=== PATIENT | female | born 1960 | race Caucasian/White ===

== ENCOUNTER 2021-03-14 16:02 | Emergency (ER) | payer SELFPAY ==
[2021-03-14] VITALS (11 sets, daily range): BP systolic 135–180; BP diastolic 77–92; PULSE 59–98; RESP 12–28; TEMP 36.9; O2SAT 93–97; BMI 17.2
--- NOTE | 2021-03-14 16:01 | ECG_ITS ---
APPROVED REPORT Exam: Resting ECG HR:88 bpm ECG Measurements Heart Rate 88 AXES OK 140 P 71 QRSd 82 QRS 61 QT 372 T 60 QTc 450 Conclusion Normal sinus rhythm Normal ECG Electronically signed by : Sunil Leblanc, 03/14/2021 17:49:17
--- NOTE | 2021-03-14 16:05 | HMH.EDGENADL ---
ED Disposition Clinical Impression: Epigastric pain, Coronary artery calcification, Bochdalek hernia UTI (urinary tract infection) Qualifiers: Urinary tract infection type: site unspecified Hematuria presence: without hematuria Qualified Code(s): N39.0 - Urinary tract infection, site not specified Disposition: Home, Self-Care Condition on Discharge: Good Instructions: Diaphragmatic Hernia, DI for Urinary Tract Infection (UTI), DI for Abdominal Pain-Adult, DI for Atypical Chest Pain Additional Instructions: Additional instructions for URINARY TRACT INFECTION: Take antibiotic as prescribed. See your physician in 2-3 days for follow up and culture results. Return immediately if you have an uncontrollable fever greater than 102 degrees, severe back or abdominal pain, inability to urinate, or repetitive vomiting. Additional instructions for ABDOMINAL PAIN: See your physician as soon as possible for further evaluation. Return immediately if worsening abdominal pain, vomiting, shortness of breath, fever, vomiting of blood or abdominal distention. You are being provided with a list of physicians available for follow-up of your condition. Please call a physician on this list to arrange a follow-up appointment as soon as possible. On your CAT scan of your abdomen you had calcifications of your coronary arteries, you need further evaluation for this, you are being referred to cardiology. Call to make an appointment. Follow-up with a surgeon regarding your diaphragmatic hernia. Prescriptions: Ciprofloxacin HCl [Cipro 500mg Tab] 500 mg PO BID #14 tab Transmission Status: Received by [id number] Referrals: Provider,MD Ashley [Primary Care Provider] - Emery Muller MD [Staff Physician] - (cardiology) Fam Jon MD [Staff Physician] - (surgery) - Critical Care Critical Care Time: No Attestation: On , the high probability of a clinically significant, sudden or life threatening deterioration of the following system(s) required my full and direct attention, intervention and personal management. The time I documented below is in addition to time spent performing reported procedures but includes the following listed in this critical care notation. Medical Decision Making - Morris Inquiry Pt receiving controlled substance: No Vital Signs: 03/14/21 16:02 03/14/21 16:57 03/14/21 17:01 Temperature 98.5 F Temperature Source Oral Pulse Rate 71 73 Pulse Rate [Right] 98 H Respiratory Rate 16 12 17 Blood Pressure 154/92 H 152/90 H Blood Pressure [Right Arm] 180/91 H Blood Pressure Mean 114 113 Blood Pressure Mean [Right Arm] 120 Blood Pressure Source [Right Arm] Automatic Cuff Blood Pressure Position [Right Arm] Sitting 02 Sat by Pulse Oximetry 95 95 95 Oxygen Delivery Method Room Air 03/14/21 17:15 03/14/21 17:30 03/14/21 17:31 Temperature Temperature Source Pulse Rate 76 69 70 Pulse Rate [Right] Respiratory Rate 24 26 H 22 Blood Pressure 136/77 Blood Pressure [Right Arm] Blood Pressure Mean 114 Blood Pressure Mean [Right Arm] Blood Pressure Source [Right Arm] Blood Pressure Position [Right Arm] 02 Sat by Pulse Oximetry 93 L 94 L 95 Oxygen Delivery Method 03/14/21 18:11 03/14/21 18:51 03/14/21 19:00 Temperature Temperature Source Pulse Rate 67 59 L 64 Pulse Rate [Right] Respiratory Rate 19 22 22 Blood Pressure 135/88 145/87 H Blood Pressure [Right Arm] Blood Pressure Mean 103 Blood Pressure Mean [Right Arm] Blood Pressure Source [Right Arm] Blood Pressure Position [Right Arm] 02 Sat by Pulse Oximetry 96 97 96 Oxygen Delivery Method 03/14/21 19:50 Temperature Temperature Source Pulse Rate 67 Pulse Rate [Right] Respiratory Rate 17 Blood Pressure 145/92 H Blood Pressure [Right Arm] Blood Pressure Mean Blood Pressure Mean [Right Arm] Blood Pressure Source [Right Arm] Blood Pres
--- NOTE | 2021-03-14 16:24 | CT_ITS ---
PROCEDURE INFORMATION: Exam: CT Abdomen And Pelvis With Contrast Exam date and time: 03/14/2021 4:24 PM Age: 60 years old Clinical indication: Abdominal pain; Epigastric TECHNIQUE: Imaging protocol: Computed tomography of the abdomen and pelvis with contrast. Total images: 278 Radiation optimization: All CT scans at this facility use at least one of these dose optimization techniques: automated exposure control; mA and/or kV adjustment per patient size (includes targeted exams where dose is matched to clinical indication); or iterative reconstruction. Contrast material: ISOVUE; Contrast volume: 75 ml; Contrast route: IV; COMPARISON: ABDPELW/O CT ABD PELVIS W/O CONTRAST 04/30/2014 6:54 PM FINDINGS: Lungs: Granulomatous calcification in the left lower lobe. Pleural spaces: Trace basilar pleural effusions, left greater than right, with mild adjacent compressive atelectasis. Heart: Heart size normal. Moderate coronary artery calcification in the LAD distribution. Moderate coronary artery calcification in the RCA distribution. Mediastinal space: The visualized distal esophagus is normal. Liver: There is a small fatty Bochdalek's hernia in the posteromedial right base which is slightly increased in size since 2014, currently 4 x 2 x 4 cm. No signs of strangulation. No herniated bowel or solid organ content. Normal contour. There are 2 circumscribed low-density under enhancing hepatic lesions in the central liver dome and right lobe posterior segment demonstrating features most consistent with simple hepatic cysts. These do not require further evaluation. No intrahepatic biliary ductal dilatation. Gallbladder and bile ducts: The gallbladder is contracted but otherwise unremarkable. The common bile duct measures 7 mm maximum diameter, which is mildly increased in caliber from 2014 and slightly dilated for age. Clinical/laboratory correlation recommended to exclude evidence of biliary obstruction. Consider sonographic assessment as clinically indicated. Pancreas: Normal. No inflammatory changes or ductal dilation. Spleen: Granulomatous calcifications in the spleen without acute splenic abnormality. Adrenal glands: Normal. No adrenal mass. Kidneys and ureters: No acute abnormalities. No hydronephrosis or hydroureter. No urinary tract stones are identified. There are bilateral renal cortical lesions demonstrating low density values and circumscribed margins favoring simple renal cysts. No further imaging evaluation is required. There is a 10 mm complicated cyst at the upper pole of the left kidney measuring 40 Hounsfield units which is unchanged from 2014 and does not require further evaluation. Stomach and bowel: The stomach is unremarkable. Short segment small bowel intussusception in the left upper quadrant on series 3, image 56 measuring 3 cm in length with no evidence of associated bowel obstruction, lead point mass, or other bowel abnormality. This can be a transient finding of no clinical significance. Correlate clinically for obstructive symptoms. There is colonic wall thickening suspicious for mild colitis involving the ascending colon and hepatic flexure. The distal colon is largely contracted with moderate rectal gas.Mild diverticulosis involving the distal colon without evidence of acute diverticulitis. No evidence of perforation or abscess. Appendix: The appendix is not identified. No secondary signs of appendicitis. Intraperitoneal space: No free fluid or air. Vasculature: Moderate atherosclerotic aortoiliac calcification without aneurysm. Lymph nodes: No adenopathy. Urinary bladder: The urinary bladder is largely contracted without gross
[2021-03-14 16:35] LABS: Chloride 107 mmol/L (98-107)
[2021-03-14 16:36] LABS: Potassium 3.8 mmoL/L (3.5-5.1); Sodium 142 mmol/L (136-145)
[2021-03-14 16:38] LABS: Alanine Aminotransferase 14 U/L (12-78); Alkaline Phosphatase 150 U/L (38-126); Anion Gap 14.8 mEq/L (5-15); Aspartate Amino Transferase 24 U/L (14-36); Bilirubin,Total 0.8 mg/dl (0.2-1.3); Blood Urea Nitrogen 24 mg/dl (7-17); Carbon Dioxide 24 mmol/L (22.0-30.0); Creatinine Clearance Estimated 44 mL/min (50-200); Estimated Glomerular Filt Rate 50 ml/min (>60); GFR (African American) 61 ML/MIN (>60); Lipase 86 U/L (23-300)
[2021-03-14 16:39] LABS: Albumin Level 4.2 g/dl (3.5-5.0); Albumin/Globulin Ratio 1.4 (1.1-1.8); Calcium 9.5 mg/dl (8.4-10.2); Globulin 3.1 g/dL (1.3-3.2); Glucose 104 mg/dl (74-100); Total Protein,Serum 7.3 g/dl (6.3-8.2)
[2021-03-14 16:51] LABS: Microscopic, Urine URINE MICROSCOPIC (MICROSCOPIC)
[2021-03-14 17:32] LABS: Troponin I < 0.01 ng/ml (0.00-0.034)
[2021-03-14 17:48] LABS: Basophils % 0.3 % (0.1-2.0); Eosinophils # 0.1 K/mm3 (0.0-0.4); Eosinophils % 1.2 % (0.1-12.0); Hematocrit 40.5 % (37.0-47.0); Hemoglobin 14.4 g/dL (12.2-16.2); Lymphocytes % 9.6 % (10-50); Mean Corpuscular HGB Conc 35.5 g/dL (31.8-35.4); Mean Corpuscular Hemoglobin 31.7 pg (27.0-31.2); Mean Corpuscular Volume 89.2 fl (81-99); Mean Platelet Volume 8.5 fl (7.4-10.4); Monocytes # 0.4 K/mm3 (0.1-1.0); Monocytes % 3.3 % (1.7-9.3); Neutrophils % 85.5 % (37.0-80.0); Platelet Count 231 K/mm3 (142-424); Red Blood Count 4.54 M/mm3 (4.20-5.40); Red Cell Distribution Width 12.3 % (11.5-17.5); White Blood Count 10.6 K/mm3 (4.8-10.8)
--- NOTE | 2021-03-14 17:50 | PC.NURSE ---
PATIENT TO CT
[2021-03-14 18:00] LABS: MANUAL DIFFERENTIAL MANUAL DIFFERENTIAL (MANUAL DIFF)
[2021-03-14 18:43] LABS: Appearance,Urine CLEAR (Clear); Blood, Urine 2+ (Negative); Color,Urine YELLOW (Yellow); Glucose,Urine (UA) Negative (Negative); Ketones,Urine 1+ (Negative); Leukocyte Esterase,Urine 2+ (Negative); Nitrate,Urine POSITIVE (Negative); Protein,Urine 2+ (Negative); Specific Gravity, Urine >= 1.030 (1.005-1.030); Urobilinogen,Urine 0.2 EU/dl (0.2)
[2021-03-14 18:45] LABS: Bilirubin,Urine Negative (Negative)
--- NOTE | 2021-03-14 18:46 | PC.NURSE ---
Called lab and asked about delay of urine results.
[2021-03-14 20:01] LABS: Troponin I < 0.01 ng/ml (0.00-0.034)
[2021-03-14 20:10] LABS: WBC,Urine 20-50 #/hpf (0-3)
[2021-03-14 20:11] LABS: Bacteria,Urine 2+ /lpf; Mucus,Urine 1+ /lpf
[2021-03-14 21:03] LABS: Eosinophils % 3 % (0-3); Lymphocytes % 14 % (10-50); Monocytes % 2 % (2-9); Neutrophils % 81 % (42-76); Platelet Estimate Normal; Total Cells Counted 100
== END 2021-03-14 20:18 | disposition home or self-care (01) ==
PROVIDERS: Emergency Provider Emergency Medicine
DX: R10.13 Epigastric pain (principal); N30.00 Acute cystitis without hematuria; I25.10 Atherosclerotic heart disease of native coronary artery without angina pectoris; Q79.0 Congenital diaphragmatic hernia; F17.210 Nicotine dependence, cigarettes, uncomplicated
CPT/HCPCS: 74177; 80053; 81001; 83690; 84484; 85007; 85025; 87086; 87088; 87186; 93005; 96365; 96375; 99283; J2405; Q9967

== ENCOUNTER 2021-11-27 11:53 | Emergency (ER) | payer SELFPAY ==
[2021-11-27 11:54] VITALS: BP 197/112; PULSE 86; RESP 20; O2SAT 94; BMI 19.3
--- NOTE | 2021-11-27 12:04 | XR_ITS ---
FINAL REPORT CLINICAL HISTORY: fall FINDINGS: LEFT HIP Three views demonstrate no acute fracture or dislocation. There are mild degenerative changes of both hips. The visualized bony structures are well aligned. No soft tissue abnormality is seen. IMPRESSION: No acute process. Reviewed, Interpreted and Dictated by Nilton Melton III, MD Transcribed by Melinda Delacruz Authenticated by Nilton Melton III, MD on 11/27/2021 01:42:53 PM [facility]
--- NOTE | 2021-11-27 12:04 | CT_ITS ---
FINAL REPORT CLINICAL HISTORY: fall, NECK AND HEAD PAIN FINDINGS: Axial CT images of the cervical spine were obtained without contrast. Sagittal and coronal reformatted images were also obtained. This study was performed with techniques to keep radiation doses as low as reasonably achievable (ALARA). Individualized dose reduction techniques using automated exposure control or adjustment of mA and/or kV according to the patient's size were employed. There is no evidence of fracture or dislocation. There are moderate degenerative changes, greatest at C4-5, C5-C6, and C6-7. There is mild kyphosis on C5. Multilevel neural foraminal narrowing is identified. Two right carotid stents are present. IMPRESSION: Moderate degenerative changes without acute bony abnormality. Reviewed, Interpreted and Dictated by Nilton Melton III, MD Transcribed by Melinda Delacruz Authenticated by Nilton Melton III, MD on 11/27/2021 01:42:59 PM [facility]
--- NOTE | 2021-11-27 12:04 | CT_ITS ---
FINAL REPORT CLINICAL HISTORY: fall, HEAD AND NECK PAIN COMPARISON: 05/10/2018 FINDINGS: Axial images of the head were obtained without contrast. Coronal reformatted images were also obtained. This study was performed with techniques to keep radiation doses as low as reasonably achievable (ALARA). Individualized dose reduction techniques using automated exposure control or adjustment of mA and/or kV according to the patient's size were employed. There is generalized age appropriate atrophy. There is no evidence of intracranial hemorrhage or mass. There is right frontal encephalomalacia, stable. There is mild left frontal encephalomalacia, stable. The ventricular size is within normal limits. There is no evidence of shift of the midline structures. There is a left parietal scalp hematoma. IMPRESSION: Chronic appearing findings without acute intracranial abnormality. Left parietal scalp hematoma. Reviewed, Interpreted and Dictated by Nilton Melton III, MD Transcribed by Melinda Delacruz Authenticated by Nilton Melton III, MD on 11/27/2021 01:42:[address] [facility]
--- NOTE | 2021-11-27 12:04 | XR_ITS ---
FINAL REPORT CLINICAL HISTORY: fall FINDINGS: SINGLE VIEW CHEST The heart is normal in size. The mediastinum is unremarkable. The lungs are clear. There is no pneumothorax. IMPRESSION: No acute cardiopulmonary process. Reviewed, Interpreted and Dictated by Nilton Melton III, MD Transcribed by Melinda Delacruz Authenticated by Nilton Melton III, MD on 11/27/2021 01:42:56 PM [facility]
--- NOTE | 2021-11-27 12:26 | PC.NURSE ---
Patient refused CCollar and removed it.
[2021-11-27 12:30] VITALS: BP 171/107; PULSE 80; O2SAT 95
--- NOTE | 2021-11-27 12:54 | HMH.EDGENADL ---
ED Disposition Clinical Impression: Scalp contusion Qualifiers: Encounter type: initial encounter Qualified Code(s): S00.03XA - Contusion of scalp, initial encounter Contusion of left hip Qualifiers: Encounter type: initial encounter Qualified Code(s): S70.02XA - Contusion of left hip, initial encounter Disposition: Home, Self-Care Condition on Discharge: Good Instructions: How to Prevent Falls, DI for Closed Head Injury Additional Instructions: Ice to scalp 20 minutes 4-5 times a day to reduce swelling. Tylenol as needed for pain. Additional instructions for HEAD INJURY: See your physician as soon as possible for further evaluation. Return immediately if severe headache, vomiting, problems with vision or speech, numbness or weakness of the extremities, or severe neck pain. Referrals: Provider,MD Ashley [Primary Care Provider] - - Critical Care Critical Care Time: No Attestation: On 11/27/21, the high probability of a clinically significant, sudden or life threatening deterioration of the following system(s) required my full and direct attention, intervention and personal management. The time I documented below is in addition to time spent performing reported procedures but includes the following listed in this critical care notation. Medical Decision Making - Morris Inquiry Pt receiving controlled substance: No Vital Signs: 11/27/21 11:54 Pulse Rate [Left Radial] 86 Respiratory Rate 20 Blood Pressure [Right Arm] 197/112 H Blood Pressure Mean [Right Arm] 140 Blood Pressure Source [Right Arm] Automatic Cuff Blood Pressure Position [Right Arm] Sitting 02 Sat by Pulse Oximetry 94 L Oxygen Delivery Method Room Air - Radiology Data #1 Image(s): Chest, Hip Image Reviewed: Yes I reviewed the patient's radiology image, Yes I have reviewed radiologist's interpretation Preliminary Findings: Normal/NAD Procedure(s): XR hip LT 2-3V w/pelvis Accession Number(s): [id number] cc: Nilton Melton MD; Provider,Ashley KELSEY~ FINAL REPORT CLINICAL HISTORY: fall FINDINGS: LEFT HIP Three views demonstrate no acute fracture or dislocation. There are mild degenerative changes of both hips. The visualized bony structures are well aligned. No soft tissue abnormality is seen. IMPRESSION: No acute process. Reviewed, Interpreted and Dictated by Nilton Melton III, MD Transcribed by Melinda Delacruz Authenticated by Nilton Melton III, MD on 11/27/2021 01:42:53 PM [facility] Procedure(s): XR chest portable Accession Number(s): [id number] cc: Nilton Melton MD; Provider,Referral MD~ FINAL REPORT CLINICAL HISTORY: fall FINDINGS: SINGLE VIEW CHEST The heart is normal in size. The mediastinum is unremarkable. The lungs are clear. There is no pneumothorax. IMPRESSION: No acute cardiopulmonary process. Reviewed, Interpreted and Dictated by Nilton Melton III, MD Transcribed by Melinda Delacruz Authenticated by Nilton Melton III, MD on 11/27/2021 01:42:56 PM [facility] - CT Data CT Scan: Head, C-Spine Time Received: 14:[address] Reviewed: Yes: I have viewed the radiologist's interpretation Findings Narrative: Procedure(s): CT head/brain wo con Accession Number(s): [id number] cc: Nilton Melton MD; Provider,Referral MD; Song Rand MD~ FINAL REPORT CLINICAL HISTORY: fall, HEAD AND NECK PAIN COMPARISON: 05/10/2018 FINDINGS: Axial images of the head were obtained without contrast. Coronal reformatted images were also obtained. This study was performed with techniques to keep radiation doses as low as reasonably achievable (ALARA). Individualized dose reduction techniques using automated exposure control or adjustment of mA and/or kV according to the patient's size were employed. There is generalized age appropriate atrophy. There is no evidence of intracranial hemorrhage or mass. There is right frontal encephalomalacia, s
--- NOTE | 2021-11-27 13:31 | PC.NURSE ---
contacted radiology to check on status of results of pt cts, spoke with lindsay, states films have not been read yet and was mayela the number to [facility] to check on status of CTs.
--- NOTE | 2021-11-27 13:32 | PC.NURSE ---
spoke with Melinda at [facility], states radiologist is in the process of reading CTs now and we should have to reports shortly .
[2021-11-27 14:20] VITALS: BP 170/100; PULSE 84; RESP 20; TEMP 36.7; O2SAT 94
== END 2021-11-27 14:20 | disposition home or self-care (01) ==
PROVIDERS: Emergency Provider Emergency Medicine
DX: S70.02XA Contusion of left hip, initial encounter (principal); S00.03XA Contusion of scalp, initial encounter; W10.9XXA Fall (on) (from) unspecified stairs and steps, initial encounter; Y92.89 Other specified places as the place of occurrence of the external cause; Y99.8 Other external cause status; F17.210 Nicotine dependence, cigarettes, uncomplicated
CPT/HCPCS: 70450; 71045; 72125; 73502; 99284

== ENCOUNTER 2024-07-31 19:18 | Emergency (ER) | payer MEDICARE, SELFPAY ==
[2024-07-31 19:36] VITALS: BP 135/72; PULSE 82; RESP 18; TEMP 36.5; O2SAT 95; BMI 18.7
[2024-07-31 19:42] LABS: Apearance,Urine Cloudy (Clear); Color,Urine Yellow (Yellow)
[2024-07-31 19:43] LABS: Specific Gravity, Urine 1.025 (1.005-1.030)
[2024-07-31 19:44] LABS: Glucose,Urine (UA) Negative (Negative); Ketones,Urine Negative (Negative); Protein,Urine 3+ (Negative)
[2024-07-31 19:45] LABS: Bilirubin,Urine Negative (Negative); Blood, Urine Negative (Negative); UTC Nitrate,Urine Positive (Negative); Urobilinogen,Urine 0.2 EU/dl (0.2)
[2024-07-31 19:46] LABS: UTC Leukocyte Esterase,Urine 3+ (Negative)
--- NOTE | 2024-07-31 19:48 | ED_ITS ---
Discharge Plan Disposition Patient Disposition: Home, Self-Care Condition: Good Prescriptions Prescriptions: New ciprofloxacin HCl 250 mg tablet 250 mg PO Q12H 5 Days Qty: 10 0RF No Action lisinopril-hydrochlorothiazide 10-12.5 mg tablet 10 tab PO DAILY Patient Comments: TAKE ONE TABLET BY MOUTH ONCE DAILY rosuvastatin 40 mg tablet 40 mg PO DAILY Patient Comments: TAKE ONE TABLET BY MOUTH ONCE DAILY Referrals Follow up/Referrals: Gila Lopez APRN [Primary Care Provider] - See instructions Activity Restrictions/Add. Instructions Additional Instructions/Restrictions: Take medication as prescribed. If abdominal pain worsens, go to the ER. Keep follow up with specialist. Clinical Impressions Clinical Impression: UTI (urinary tract infection) Qualifiers: Urinary tract infection type: site unspecified Hematuria presence: without hematuria Qualified Code(s): N39.0 - Urinary tract infection, site not specified Instructions Patient Instructions: DI for Urinary Tract Infection (UTI) Print Language Print Language: Turkmen Discharge ED Provider: Jacki Salazar [facility] General Stated complaint: back and stomach pain Mode of Arrival: Ambulatory Source of Information: Patient Time Seen by Provider: 07/31/24 19:46 Description of Symptoms (Recalled from Triage Doc. by RN): CONSTANT SHARP EPIGASTRIC PAIN THAT RADIATES TO HER BACK 2 MONTHS HEENT Symptoms (Recalled from RN notes): No Resp Symptoms (Recalled from RN notes): No Skin Symptoms (Recalled from RN notes): No MS Symptoms (Recalled from RN notes): Yes Functional Status (Recalled from RN notes): WNL History of Present Illness Provider Complaint: Pt reports that she has not felt well for the last 2 months and has had abdominal pain that radiates to her back. She reports epigastric pain and had an abdominal x-ray yesterday. She reports history with urinary issues and was on antibiotics 2 weeks ago for an UTI Related Data Home Medications ?Medication ?Instructions ?Recorded ?Confirmed lisinopril 10 10 tab PO DAILY 07/31/24 07/31/24 mg-hydrochlorothiazide 12.5 mg tablet rosuvastatin 40 mg tablet 40 mg PO DAILY 07/31/24 07/31/24 Previous Rx's ?Medication ?Instructions ?Recorded ciprofloxacin HCl 250 mg tablet 250 mg PO Q12H 5 days #10 tabs 07/31/24 Allergies Allergy/AdvReac Type Severity Reaction Status Date / Time No Known Allergies Allergy Verified 05/10/18 14:56 Worker's Comp Is this a Worker's Comp case?: No [facility] Disclaimer: The information contained in this section may have been updated after the patient was seen, as this information can be updated by other users. Social History Smoking Status: Current every day smoker tobacco type: cigarettes packs per day: 1 alcohol intake: never current occupational status: other Travel in the last 8 weeks: None housing: house ROS Obtained: Yes All systems reviewed & no additional complaints except as documented Constitutional Constitutional: Reports system reviewed and no additional complaints, except as documented, Reports poor appetite and Reports malaise Eyes Eyes: Reports system reviewed and no additional complaints, except as documented ENT Ears, Nose, Mouth, and Throat: Reports system reviewed and no additional complaints, except as documented Cardiovascular Cardiovascular: Reports system reviewed and no additional complaints, except as documented Respiratory Respiratory: Reports system reviewed and no additional complaints, except as documented Gastrointestinal Gastrointestingal: Reports system reviewed and no additional complaints, except as documented and abdominal pain Genitourinary Female Genitourinary: Reports system reviewed and no additional complaints, except as documented and Reports urinary frequency Musculoskeletal Musculoskeletal: Reports system reviewed and no additional complaints, except as documented Integumentary/Breasts Skin/Breast: Reports system reviewed and no additional complaints, except as documented Neurologic Neurologic: Reports system reviewed and no additional complaints, except as documented Endocrine Endocrine: Reports system reviewed and no additional complaints, except as documented Hematologic/Lymphatic Henatologic/Lymphatic: Reports system reviewed and no additional complaints, except as documented Allergic/Immunologic Allergic/Immunologic: Reports system reviewed and no additional complaints, except as documented Physical Exam General General appearance: alert Comment: ill appearing Head Head exam: atraumatic and normocephalic Eye Eye exam: Present normal appearance ENT ENT exam: Present normal exam and normal oropharynx Neck Neck exam: Present normal inspection Chest Chest inspection: Present normal inspection and symmetric chest wall rise Respiratory Respiratory exam: Present other (course sounds throughout) Cardiovascular Cardiovascular exam: Present normal rhythm Abdominal Exam Abdominal exam: Present tenderness and normal bowel sounds Abdominal tenderness: Present epigastrium Extremities Exam Extremities exam: Present normal inspection Back Exam Back exam: Present normal inspection; Absent CVA tenderness (R) or CVA tenderness (L) Neurological Exam Neurological exam: Present alert and oriented X3 Psychiatric Psychiatric exam: Present normal affect and normal mood Skin Skin exam: Present warm, dry and intact Lymphatic Lymphatic Findings: no adenopathy Medical Decision Making Medical Records Screening: Per USPSTF and CDC recommendations, given the prevalence of disease in our region, it is our hospital?s policy to screen for HIV and viral Hepatitis for all patients aged 18 and over and those with ongoing risk factors. Morris Inquiry Pt receiving controlled substance: No Morris was queried for this patient: No Vital Signs: 07/31/24 19:36 Temperature 97.7 F Temperature Source Oral Pulse Rate [Left Radial] 82 Respiratory Rate 18 Blood Pressure [Left Arm] 135/72 Blood Pressure Mean [Left Arm] 93 02 Sat by Pulse Oximetry 95 Lab Data Lab results reviewed: Yes I reviewed the patient's lab results. Lab Results 07/31/24 19:41: Urine Color Yellow, Urine Appearance Cloudy, Urine pH 7.0, Ur Specific [place] 1.025, Urine Protein 3+, Urine Glucose (UA) Negative, Urine Ketones Negative, Urine Blood Negative, Urine Nitrate Positive A, Urine Bilirubin Negative, Urine Urobilinogen 0.2, Ur Leukocyte Esterase 3+ A
[2024-07-31 19:58] VITALS: BP 135/72; PULSE 82; RESP 18; TEMP 36.5
== END 2024-07-31 20:02 | disposition home or self-care (01) ==
PROVIDERS: Emergency Provider Nurse Practitioner Family; PCP Nurse Practitioner
DX: N39.0 Urinary tract infection, site not specified (principal)
CPT/HCPCS: 81003; 99213; G0381

== ENCOUNTER 2024-12-20 11:01 | Outpatient (RCR) | payer MEDICARE, SELFPAY | END 2024-12-24 23:59 | disposition home or self-care (01) | LOC: PT 11:01 | PROVIDERS: PCP Nurse Practitioner; Visit Provider Orthopaedic Surgery Adult Reconstructive Orthopaedic Surgery | DX: M25.511 Pain in right shoulder (principal) | CPT/HCPCS: 97163 ==